=== PATIENT | female | born 1945 | race Caucasian/White ===

== ENCOUNTER → 2016-11-04 | Outpatient (CLI) | payer MEDICARE, OTHER ==
[~2016-11-04] MED LIST: ALBU17AE23 IH; AZIT500T2 PO; MED FOR HPTN; VITAMINES PO; [UNRECOGNIZED DRUG - OTHER] PO
--- NOTE | 2016-11-05 18:52 | Diagnostic Imaging Report ---
Bilateral screening mammogram. The current study was also evaluated with a Computer Aided Detection (CAD) system. INDICATION: Screening. No current complaints stated on the questionnaire. COMPARISON: 11/04/15. FINDINGS: The breasts are composed of scattered fibroglandular densities. There is no mass, architectural distortion or suspicious cluster of calcification. Allowing for technique and positional differences, no suspicious change is seen. IMPRESSION: No significant change. ACR BI-RADS Category 2: Benign findings. Result letter will be mailed to the patient. Note: At least 10% of breast cancer is not imaged by mammography. Dictated by: Dictated on workstation # [id number]
== END ==
LOC: RAD 10:03
PROVIDERS: ATTEND Nurse Practitioner Family
DX: Z12.31 Encounter for screening mammogram for malignant neoplasm of breast (principal)
CPT/HCPCS: 77067

== ENCOUNTER → 2017-08-25 | Outpatient (CLI) | payer MEDICARE, OTHER | LOC: CARD 12:02 | PROVIDERS: ATTEND Physician Assistant | DX: R06.09 Other forms of dyspnea (principal); I10 Essential (primary) hypertension; E78.2 Mixed hyperlipidemia; Z72.0 Tobacco use | CPT/HCPCS: 93306 ==

== ENCOUNTER → 2017-11-05 | Outpatient (CLI) | payer MEDICARE, OTHER ==
[2017-11-05 09:20] LABS: BASOPHILS % (AUTO) 0 % (0-10); EOSINOPHILS # (AUTO) 0.2 10^3/uL (0.0-0.3); EOSINOPHILS % (AUTO) 2 % (0-10); HEMATOCRIT 40 % (35-52); HEMOGLOBIN 13.3 G/DL (11.5-16.0); LYMPHOCYTES % (AUTO) 27 % (12-44); MEAN CORPUSCULAR HEMOGLOBIN 33 PG (25-34); MEAN CORPUSCULAR HGB CONC 33 G/DL (32-36); MEAN CORPUSCULAR VOLUME 99 FL (80-99); MEAN PLATELET VOLUME 10.1 FL (7.4-10.4); MONOCYTES # (AUTO) 0.9 X 10^3 (0.0-1.0); MONOCYTES % (AUTO) 8 % (0-12); NEUTROPHILS # (AUTO) 7.1 X 10^3 (1.8-7.8); NEUTROPHILS % (AUTO) 63 % (42-75); PLATELET COUNT 280 10^3/uL (130-400); RED BLOOD COUNT 4.07 10^6/uL (4.35-5.85); RED CELL DISTRIBUTION WIDTH 12.4 % (10.0-14.5); WHITE BLOOD COUNT 11.2 10^3/uL (4.3-11.0)
[2017-11-05 10:25] LABS: BASOPHILS % (MANUAL) 1 %; EOSINOPHILS % (MANUAL) 1 %; LYMPHOCYTES % (MANUAL) 29 %; MONOCYTES % (MANUAL) 6 %; NEUTROPHILS % (MANUAL) 63 %
[2017-11-05 10:26] LABS: RBC MORPH NORMAL
[2017-11-05 13:20] LABS: ABSOLUTE RETIC # 30 10e9/L (24-90); RETICULOCYTE % 0.73 % (0.50-2.40)
--- NOTE | 2017-11-05 13:46 | Diagnostic Imaging Report ---
INDICATION: Routine screening. COMPARISON: Comparison is made with prior studies from 11/04/2016 and 11/04/2015. The current study was also evaluated with a Computer Aided Detection (CAD) system. FINDINGS: Scattered fibroglandular densities are identified bilaterally. No dominant mass or malignant appearing microcalcifications are seen. The axillae are unremarkable. IMPRESSION: No mammographic features suspicious for malignancy are identified. ACR BI-RADS Category 1: Negative. Result letter will be mailed to the patient. Note: At least 10% of breast cancer is not imaged by mammography. Dictated by: Dictated on workstation # [id number]
== END ==
LOC: RAD 09:03
PROVIDERS: ATTEND Nurse Practitioner Family
DX: Z12.31 Encounter for screening mammogram for malignant neoplasm of breast (principal); D72.829 Elevated white blood cell count, unspecified
CPT/HCPCS: 36415; 77067; 85007; 85027; 85045

== ENCOUNTER → 2018-06-23 | Outpatient (CLI) | payer MEDICARE, OTHER ==
[~2018-06-23] MED LIST changes: +CATHETER FLUSH 10 ML SYR IV PRN; +IOHEXOL 350 MG/ML 100 ML (OMNIPAQUE 350) VIAL IV ONE; +NS 250 ML (IVPB) BAG IV ONE; +RECEIVED CONTRAST (Hold Metformin) IV SCH
--- NOTE | 2018-06-23 11:18 | Diagnostic Imaging Report ---
PROCEDURE: CT chest with contrast only. TECHNIQUE: Multiple contiguous axial images were obtained through the chest after administration of intravenous contrast. INDICATION: Tobaccoism. COMPARISON: No prior studies are available for comparison. FINDINGS: There is a 9 mm low-density nodule right lobe of the thyroid. No axillary lymphadenopathy is seen. No hilar or mediastinal lymphadenopathy is detected. No pericardial or pleural fluid is identified. Pulmonary parenchymal evaluation demonstrates central airways to be patent. Lungs appear to be fairly clear apart from some linear scarring or subsegmental atelectasis in the lingula. No parenchymal mass, nodule or infiltrate is identified. Upper abdomen is unremarkable. IMPRESSION: 1. Essentially unremarkable CT of the chest with contrast. No thoracic lymphadenopathy or evidence of pulmonary mass is seen. 2. Small subcentimeter right lobe thyroid nodule. Characterization with thyroid ultrasound could be performed, if clinically indicated. Dictated by: Dictated on workstation # [id number]
--- NOTE | 2018-06-23 19:26 | Diagnostic Imaging Report ---
INDICATION: Screening for osteoporosis. COMPARISON: 05/16/2015. FINDINGS: AP Spine L1-L4: [BMD (g/cm2): 0.943] [T-Score: -2.1] [Z-Score: 0.0] [BMD Previous: 0.901] [BMD % Change: 4.7] LT Hip Neck: [BMD (g/cm2): 0.576] [T-Score: -3.3] [Z-Score: -1.3] LT Hip Total: [BMD (g/cm2):0.532] [T-Score:-3.8] [Z-Score: -2.0] [BMD Previous: ] [BMD % Change: ] RT Hip Neck: [BMD (g/cm2):0.590] [T-Score:-3.2] [Z-Score:-1.2] RT Hip Total: [BMD (g/cm2):0.561] [T-score:-3.5] [Z-Score:-1.7] [BMD Previous: ] [BMD % Change: ] *Indicates significant change from prior examination based on 95% confidence level. World Health Organization criteria for BMD interpretation classify patients as Normal (T-score at or above -1.0), Osteopenic (T-score between -1.0 and -2.5) or Osteoporotic (T-score at or below -2.5). LIMITATIONS AND MODIFICATION: None. FRACTURE RISK (FRAX SCORE): The ten year probability of (%): Major Osteoporotic Fracture: [25] Hip Fracture: [15] IMPRESSION: 1. The bone mineral density of the spine has increased somewhat since the prior exam. The T score still indicates osteopenia. 2. The bone mineral density of the hips is unchanged when compared to the prior exam. These scores suggest severe osteoporosis. 3. See below National Osteoporosis Foundation guidelines on when to potentially initiate pharmacologic therapy. Based on the National Osteoporosis Foundation Guidelines, pharmacologic treatment should be initiated in any of the following, unless clinical conditions suggest otherwise: * Any patient with prior fragility fracture of the hip or vertebrae. A spine fracture indicates 5X risk for subsequent spine fracture and 2X risk for subsequent hip fracture. * Osteoporosis (T-score <-2.5). * Postmenopausal women and men age 50 and older with low bone mass/osteopenia (T-score between -1.0 and -2.5) by DXA and 10-year major osteoporotic fracture greater than 20% or a 10-year probability of hip fracture greater than 3%. These fracture risks are supplied above in the FRAX score, if applicable. * Clinician judgment and/or patient preferences may indicate treatment for people with 10-year fracture probabilities above or below these levels. Dictated by: Dictated on workstation # [id number]
== END ==
LOC: RAD 09:44
PROVIDERS: ATTEND Nurse Practitioner Family
DX: Z13.820 Encounter for screening for osteoporosis (principal); M85.88 Other specified disorders of bone density and structure, other site; E04.1 Nontoxic single thyroid nodule; M81.0 Age-related osteoporosis without current pathological fracture; F17.210 Nicotine dependence, cigarettes, uncomplicated
CPT/HCPCS: 71260; 77080

== ENCOUNTER → 2018-07-25 | Outpatient (CLI) | payer MEDICARE, OTHER ==
[~2018-07-25] MED LIST changes: -CATHETER FLUSH 10 ML SYR IV PRN; -IOHEXOL 350 MG/ML 100 ML (OMNIPAQUE 350) VIAL IV ONE; -NS 250 ML (IVPB) BAG IV ONE; -RECEIVED CONTRAST (Hold Metformin) IV SCH
--- NOTE | 2018-07-25 10:24 | Diagnostic Imaging Report ---
Indication: Right thyroid nodule Thyroid sonography performed in the routine fashion. The right thyroid lobe measured 4.6 x 1.7 x 1.9 cm. The left thyroid lobe measured 4.1 x 1.4 x 1.3 cm. On the right side, there is a nodule superiorly measuring 1.4 x 2.2 x 1.2 cm with fairly ill-defined appearance. On the left side, there are small ill-defined nodules present measuring below a centimeter in size. There is no previous study for comparison. Impression: Inhomogenous appearing thyroid gland with small bilateral nodules. There is a ill-defined nodule in the right thyroid lobe measuring 1.4 x 2.2 x 1.2 cm. This could be followed sonographically as clinically warranted. This lesion could be biopsied if clinically desired. Dictated by: Dictated on workstation # [id number]
== END ==
LOC: RAD 08:48
PROVIDERS: ATTEND Family Medicine
DX: E04.2 Nontoxic multinodular goiter (principal)
CPT/HCPCS: 76536

== ENCOUNTER → 2018-08-03 | Outpatient (CLI) | payer MEDICARE, OTHER ==
[~2018-08-03] VITALS: Ht 165.1 cm; Wt 52.7 kg
[~2018-08-03] MED LIST changes: +DENOSUMAB 60 MG/1 ML (PROLIA) SQ NR
[2018-08-03 13:35] VITALS: BP 120/62
== END ==
LOC: SDC 12:35
PROVIDERS: ATTEND Nurse Practitioner Family
DX: M81.0 Age-related osteoporosis without current pathological fracture (principal)
CPT/HCPCS: 96372

== ENCOUNTER → 2018-08-04 | Outpatient (CLI) | payer MEDICARE, OTHER ==
[~2018-08-04] VITALS: Ht 162.6 cm; Wt 52.7 kg
[~2018-08-04] MED LIST changes: -DENOSUMAB 60 MG/1 ML (PROLIA) SQ NR; +LIDOCAINE 1% INJ 20 ML 20 ML VIAL INJ ONE
--- NOTE | 2018-08-04 21:21 | Diagnostic Imaging Report ---
INDICATION: Right thyroid nodule. Patient presents for right thyroid biopsy. TECHNIQUE: Patient was brought to the procedure room, placed on the table in the supine position. Ultrasound imaging over the right neck was performed to evaluate appropriate entry site. The right neck was then prepped and draped in the usual sterile fashion. Small amount of 1% lidocaine was utilized for local anesthesia. Total of 4 passes were made into the solid nodule in the right lobe of the thyroid with 25-gauge needles. Fine needle aspiration technique was utilized. Two passes were made into the right lobe nodule with a 20-gauge Temno needle and core sampling was performed. Hemostasis was obtained using manual compression. Patient tolerated the procedure well and left the department in stable condition. IMPRESSION: Successful ultrasound-guided fine needle aspiration and core biopsy of the solid nodule in the right lobe, as described. Pathology results are currently pending. Dictated by: Dictated on workstation # [id number]
== END ==
LOC: RAD 10:46
PROVIDERS: ATTEND Surgery
DX: E04.1 Nontoxic single thyroid nodule (principal)
CPT/HCPCS: 76942; 88173; 88305

== ENCOUNTER → 2018-12-05 | Outpatient (CLI) | payer MEDICARE, OTHER ==
[~2018-12-05] MED LIST changes: -LIDOCAINE 1% INJ 20 ML 20 ML VIAL INJ ONE
[2018-12-05 10:25] LABS: ABSOLUTE RETIC # 41 10e9/L (24-90); BASOPHILS % (AUTO) 0 % (0-10); EOSINOPHILS # (AUTO) 0.2 10^3/uL (0.0-0.3); EOSINOPHILS % (AUTO) 3 % (0-10); HEMATOCRIT 40 % (35-52); HEMOGLOBIN 13.2 G/DL (11.5-16.0); LYMPHOCYTES # (AUTO) 2.3 X 10^3 (1.0-4.0); LYMPHOCYTES % (AUTO) 25 % (12-44); MEAN CORPUSCULAR HEMOGLOBIN 32 PG (25-34); MEAN CORPUSCULAR HGB CONC 33 G/DL (32-36); MEAN CORPUSCULAR VOLUME 97 FL (80-99); MEAN PLATELET VOLUME 10.1 FL (7.4-10.4); MONOCYTES # (AUTO) 0.7 X 10^3 (0.0-1.0); MONOCYTES % (AUTO) 8 % (0-12); NEUTROPHILS # (AUTO) 5.6 X 10^3 (1.8-7.8); NEUTROPHILS % (AUTO) 64 % (42-75); PLATELET COUNT 243 10^3/uL (130-400); RED CELL DISTRIBUTION WIDTH 12.7 % (10.0-14.5); RETICULOCYTE % 0.99 % (0.50-2.40); WHITE BLOOD COUNT 8.9 10^3/uL (4.3-11.0)
[2018-12-05 10:42] LABS: ALANINE AMINOTRANSFERASE 26 U/L (0-55); ALBUMIN 4.2 GM/DL (3.2-4.5); ALKALINE PHOSPHATASE 65 U/L (40-136); BILIRUBIN,TOTAL 0.5 MG/DL (0.1-1.0); BUN/CREATININE RATIO 20; CARBON DIOXIDE 24 MMOL/L (21-32); CHLORIDE 105 MMOL/L (98-107); CHOLESTEROL 216 MG/DL (< 200); CREATININE SERUM 0.83 MG/DL (0.60-1.30); GFR ESTIMATED > 60; GLUCOSE 87 MG/DL (70-105); HDL CHOLESTEROL 57 MG/DL (40-60); POTASSIUM 3.9 MMOL/L (3.6-5.0); SODIUM 140 MMOL/L (135-145); TOTAL PROTEIN 7.5 GM/DL (6.4-8.2); TRIGLYCERIDES 124 MG/DL (<150); VLDL CHOLESTEROL 25 MG/DL (5-40)
[2018-12-05 10:53] LABS: BAND NEUTROPHILS 0 %; BASOPHILS % (MANUAL) 0 %; EOSINOPHILS % (MANUAL) 1 %; LYMPHOCYTES % (MANUAL) 24 %; MONOCYTES % (MANUAL) 4 %; NEUTROPHILS % (MANUAL) 71 %; RBC MORPH NORMAL
== END ==
LOC: LAB 09:53
PROVIDERS: ATTEND Family Medicine
DX: I10 Essential (primary) hypertension (principal); M81.0 Age-related osteoporosis without current pathological fracture; D72.829 Elevated white blood cell count, unspecified
CPT/HCPCS: 36415; 80053; 80061; 82306; 84443; 85007; 85027; 85045

== ENCOUNTER → 2019-02-01 | Outpatient (CLI) | payer MEDICARE, OTHER ==
[~2019-02-01] VITALS: Ht 162.6 cm; Wt 52.7 kg
[~2019-02-01] MED LIST changes: +DENOSUMAB 60 MG/1 ML (PROLIA) SQ ONE
[2019-02-01 12:55] VITALS: BP 118/57
== END ==
LOC: SDC 12:36
PROVIDERS: ATTEND Nurse Practitioner Family
DX: M81.0 Age-related osteoporosis without current pathological fracture (principal)
CPT/HCPCS: 96372

== ENCOUNTER 2019-08-10 12:49 | Outpatient (CLI) | payer MEDICARE, OTHER ==
[~2019-08-10] VITALS: Ht 162 cm; Wt 52.7 kg
[~2019-08-10 12:49] MED LIST changes: -DENOSUMAB 60 MG/1 ML (PROLIA) SQ ONE
[2019-08-10] MEDS ORDERED: DENOSUMAB 60 MG/1 ML (PROLIA) SQ ONE (13:00)
[2019-08-10 13:04] VITALS: BP 115/53
== END 2019-08-10 13:04 | disposition home or self-care (01) ==
LOC: SDC 12:49
PROVIDERS: ATTEND Nurse Practitioner Family
DX: M81.0 Age-related osteoporosis without current pathological fracture (principal)
CPT/HCPCS: 96372

== ENCOUNTER → 2019-12-06 | Outpatient (CLI) | payer MEDICARE, OTHER ==
--- NOTE | 2019-12-06 14:12 | Diagnostic Imaging Report ---
CLINICAL INDICATION: Follow-up thyroid nodules. COMPARISONS: Ultrasound of the thyroid gland dated 07/25/2018. FINDINGS: THYROID NODULES: There is a 1.9 cm x 0.9 cm x 1.5 cm heterogeneous solid nodule in the mid to upper right thyroid gland lobe. There is Doppler flow within this nodule. It is reported that this nodule was previously biopsied. This nodule previously measured 1.4 cm x 2.2 cm x 1.2 cm. There is central Doppler flow within this nodule. There are multiple smaller nodules involving the left thyroid gland. Largest left thyroid gland nodule is heterogeneous with central Doppler flow and measures 7 mm x 7 mm x 4 mm. This area was partially seen on the prior study, but was not measured on the prior study. Remainder of the left thyroid gland shows no other significant interval change. THYROID GLAND: Besides the thyroid nodules, the thyroid gland has normal size, shape and echogenicity. The right lobe measures 4.9 cm x 1.8 cm x 1.9 cm and the left lobe measures 4.4 cm x 1.3 cm x 1.1 cm in their three dimensions. ISTHMUS: The isthmus is unremarkable and measures 2 mm in thickness. IMPRESSION: 1: Multiple bilateral thyroid gland nodules are again seen with the largest in the right thyroid gland. Largest measures 1.9 cm in greatest dimension in the mid to upper right thyroid gland and has decreased in size compared to the prior study. 2: The largest nodule in the left thyroid gland is heterogeneous and measures 7 mm in greatest dimension, but was not measured or well visualized on the prior study. This may represent a developing nodule or this nodule was less defined on the prior study. Continued follow-up imaging would better evaluate. Dictated by: Dictated on workstation # [id number]
== END ==
LOC: RAD 11:04
PROVIDERS: ATTEND Nurse Practitioner Family
DX: E04.1 Nontoxic single thyroid nodule (principal)
CPT/HCPCS: 76536

== ENCOUNTER 2020-02-08 12:36 | Outpatient (CLI) | payer MEDICARE, OTHER ==
[~2020-02-08] VITALS: Ht 160 cm; Wt 52.7 kg
[2020-02-08] MEDS ORDERED: DENOSUMAB 60 MG/1 ML (PROLIA) SQ SCH (13:15)
[2020-02-08 13:24] VITALS: BP 134/58
== END 2020-02-08 13:24 | disposition home or self-care (01) ==
LOC: SDC 12:36
PROVIDERS: ATTEND Nurse Practitioner Family
DX: M81.0 Age-related osteoporosis without current pathological fracture (principal)
CPT/HCPCS: 96372

== ENCOUNTER → 2020-06-17 | Outpatient (CLI) | payer MEDICARE, OTHER ==
--- NOTE | 2020-06-17 13:04 | Diagnostic Imaging Report ---
CLINICAL INDICATION: Patient with thyroid nodules. COMPARISONS: Ultrasound of the thyroid gland dated 12/06/2019. FINDINGS: THYROID NODULES: There are multiple bilateral thyroid lobe nodules seen. The largest is in the right mid thyroid lobe region measuring 2.2 cm x 1.5 cm x 1.3 cm and demonstrates central Doppler flow. This nodule is slightly heterogeneous and predominantly isoechoic with some areas of hypoechogenicity. This nodule previously measured 1.9 cm x 0.9 cm x 1.5 cm. Multiple predominantly hypoechoic nodules involving the left thyroid lobe are seen. There is a heterogeneous hypoechoic 7 mm nodule measured in the long dimension which appears to have areas of hyperechogenicity within it with central Doppler flow. This nodule previously measured 7 mm x 4 mm x 6 mm. The next largest nodule measures 3 mm x 4 mm x 5 mm and is heterogeneous and predominantly hypoechoic. THYROID GLAND: Besides the thyroid nodules, the thyroid gland has normal size, shape, and echogenicity. The right lobe measures 4.5 cm x 1.7 cm x 1.9 cm and the left lobe measures 4.4 cm x 1.1 cm x 1.2 cm in their three dimensions. ISTHMUS: The isthmus is unremarkable and measures 3 mm in thickness. IMPRESSION: 1. There is slight increased size of the 2.2 cm heterogeneous nodule involving the right thyroid lobe. 2. Stable heterogeneous hypoechoic 7 mm nodule involving the inferior lateral aspect of the left thyroid lobe. There are questionable microcalcifications seen within it. This nodule should be closely followed. If this nodule reaches 1 cm, FNA should be performed if it has not already been performed. Dictated by: Dictated on workstation # [id number]
== END ==
LOC: RAD 10:15
PROVIDERS: ATTEND Otolaryngology Otolaryngology/Facial Plastic Surgery
DX: E04.2 Nontoxic multinodular goiter (principal)
CPT/HCPCS: 76536

== ENCOUNTER → 2020-06-25 | Outpatient (CLI) | payer MEDICARE, OTHER ==
--- NOTE | 2020-06-25 12:56 | Diagnostic Imaging Report ---
INDICATION: Routine screening. COMPARISON: 11/05/2017 and 11/04/2016. TECHNIQUE: 2D and 3D bilateral screening mammography was performed with CAD. FINDINGS: Both breasts remain heterogeneously dense, limiting the sensitivity of mammography. The parenchymal pattern is stable. No mass or malignant appearing microcalcifications are seen. The axillae are unremarkable. IMPRESSION: No mammographic features suspicious for malignancy are identified. ACR BI-RADS Category 1: Negative. Result letter will be mailed to the patient. Note: At least 10% of breast cancer is not imaged by mammography. Dictated by: Dictated on workstation # [id number]
--- NOTE | 2020-06-25 13:08 | Diagnostic Imaging Report ---
INDICATION: Postmenopausal. COMPARISON: 06/23/2018. FINDINGS: The T-score for the spine is -2.7. On the prior exam, the T-score was -2.1. The total T-score for the left hip is -3.9 and for the right hip -3.5. Previously, the respective T-scores were -3.8 and -3.5. The T-score for the left femoral neck is -3.3 and for the right femoral neck -2.9. On the prior exam, the T-scores were -3.3 and -3.2 respectively. AP Spine L1-L4: [BMD (g/cm2): 0.876] [T-Score: -2.7] [Z-Score: -0.5] [BMD Previous: 0.943] [BMD % Change: -7.1] LT Hip Neck: [BMD (g/cm2): 0.584] [T-Score: -3.3] [Z-Score: -1.2] LT Hip Total: [BMD (g/cm2):0.513] [T-Score:-3.9] [Z-Score: -2.0] [BMD Previous: 0.532] [BMD % Change: -3.6] RT Hip Neck: [BMD (g/cm2):0.638] [T-Score:-2.9] [Z-Score:-0.8] RT Hip Total: [BMD (g/cm2):0.568] [T-score:-3.5] [Z-Score:-1.6] [BMD Previous:0.561] [BMD % Change:1.2] *Indicates significant change from prior examination based on 95% confidence level. World Health Organization criteria for BMD interpretation classify patients as Normal (T-score at or above -1.0), Osteopenic (T-score between -1.0 and -2.5) or Osteoporotic (T-score at or below -2.5). LIMITATIONS AND MODIFICATION: None. FRACTURE RISK (FRAX SCORE): The ten year probability of (%): Major Osteoporotic Fracture: [20.1] Hip Fracture: [8.5] IMPRESSION: 1. The bone mineral density of the spine has decreased since the prior exam. The T-score now indicates osteoporosis. 2. The bone mineral density of the hips and femoral necks has not changed significantly since the prior study. All these T-score values still fall within the range of osteoporosis. 3. See below National Osteoporosis Foundation guidelines on when to potentially initiate pharmacologic therapy. Based on the National Osteoporosis Foundation Guidelines, pharmacologic treatment should be initiated in any of the following, unless clinical conditions suggest otherwise: * Any patient with prior fragility fracture of the hip or vertebrae. A spine fracture indicates 5X risk for subsequent spine fracture and 2X risk for subsequent hip fracture. * Osteoporosis (T-score <-2.5). * Postmenopausal women and men age 50 and older with low bone mass/osteopenia (T-score between -1.0 and -2.5) by DXA and 10-year major osteoporotic fracture greater than 20% or a 10-year probability of hip fracture greater than 3%. These fracture risks are supplied above in the FRAX score, if applicable. * Clinician judgement and/or patient preferences may indicate treatment for people with 10-year fracture probabilities above or below these levels. Dictated by: Dictated on workstation # [id number]
== END ==
LOC: RAD 09:45
PROVIDERS: ATTEND Family Medicine
DX: Z12.31 Encounter for screening mammogram for malignant neoplasm of breast (principal); M81.0 Age-related osteoporosis without current pathological fracture
CPT/HCPCS: 77063; 77067; 77080

== ENCOUNTER → 2020-07-25 | Outpatient (CLI) | payer MEDICARE, OTHER ==
[~2020-07-25] MED LIST changes: +GADOBUTROL 15 MMOL/15 ML (GADAVIST) VIAL IV ONE
--- NOTE | 2020-07-25 12:30 | Diagnostic Imaging Report ---
PROCEDURE: MR brain and sella with and without contrast. TECHNIQUE: Multiplanar, multisequence MR imaging of the brain was performed with and without contrast. Dedicated dynamic imaging of the sella was performed. INDICATION: Elevated labs. COMPARISON: None FINDINGS: No diffusion restriction is identified. The normal expected flow-voids within the carotid siphons are seen. No acute intra-axial or extra-axial hemorrhage is detected. Corpus callosum is unremarkable. The pituitary gland is unremarkable. Infundibulum is midline. No sellar or suprasellar mass is detected. Dynamic sequences through the sella turcica following contrast administration demonstrate fairly homogeneous signal intensity throughout the pituitary gland. No definite low signal intensity lesions are seen to suggest pituitary adenoma. IMPRESSION: Essentially unremarkable MRI of the brain with and without contrast with special attention to the pituitary gland. No pituitary mass is detected. Dictated by: Dictated on workstation # [id number]
== END ==
LOC: RAD 10:32
PROVIDERS: ATTEND Otolaryngology Otolaryngology/Facial Plastic Surgery
DX: E05.90 Thyrotoxicosis, unspecified without thyrotoxic crisis or storm (principal)
CPT/HCPCS: 70553

== ENCOUNTER 2020-08-12 13:48 | Outpatient (CLI) | payer MEDICARE, OTHER ==
[~2020-08-12] VITALS: Wt 52.7 kg
[~2020-08-12 13:48] MED LIST changes: -GADOBUTROL 15 MMOL/15 ML (GADAVIST) VIAL IV ONE
[2020-08-12 13:55] VITALS: BP 134/57
[2020-08-12] MEDS ORDERED: DENOSUMAB 60 MG/1 ML (PROLIA) SQ NR (13:56)
== END 2020-08-12 14:15 | disposition home or self-care (01) ==
LOC: SDC 13:48
PROVIDERS: ATTEND Nurse Practitioner Family
DX: M81.0 Age-related osteoporosis without current pathological fracture (principal)
CPT/HCPCS: 96372

== ENCOUNTER → 2021-02-10 | Outpatient (CLI) | payer MEDICARE, OTHER ==
[~2021-02-10] MED LIST changes: +DENOSUMAB 60 MG/1 ML (PROLIA) SQ ONE
[2021-02-10 12:40] VITALS: BP 122/54
== END ==
LOC: SDC 12:17
PROVIDERS: ATTEND Nurse Practitioner Family
DX: M81.0 Age-related osteoporosis without current pathological fracture (principal)
CPT/HCPCS: 96372

== ENCOUNTER → 2021-03-06 | Outpatient (CLI) | payer MEDICARE, OTHER ==
[~2021-03-06] MED LIST changes: -DENOSUMAB 60 MG/1 ML (PROLIA) SQ ONE
--- NOTE | 2021-03-06 19:01 | Diagnostic Imaging Report ---
PROCEDURE: US thyroid. TECHNIQUE: Multiple real-time grayscale images were obtained of the thyroid in various projections. INDICATION: Thyroid nodules. FINDINGS: Right lobe of the thyroid measures 4.8 x 2.0 x 2.4 cm. There is a dominant nodule in the right lobe, 2.1 x 1.6 cm. Left lobe of the thyroid measures 4.7 x 1.2 x 1.1 cm. There are two subcentimeter nodules measuring 0.8 and 0.7 cm, respectively. IMPRESSION: 2.1 cm isoechoic nodule in the right lobe of thyroid. There are some questionable microcalcifications within it. Further evaluation with ultrasound-guided fine-needle aspiration is recommended to exclude malignancy. Dictated by: Dictated on workstation # [id number]
== END ==
LOC: RAD 12:45
PROVIDERS: ATTEND Internal Medicine Endocrinology, Diabetes & Metabolism
DX: E04.2 Nontoxic multinodular goiter (principal)
CPT/HCPCS: 76536

== ENCOUNTER → 2021-06-26 | Outpatient (CLI) | payer MEDICARE, OTHER ==
--- NOTE | 2021-06-26 11:49 | Diagnostic Imaging Report ---
Indication: Routine screening. Comparison is made with prior mammogram 06/25/2020 and 11/05/2017. 2-D and 3-D bilateral screening mammography was performed with CAD. Both breasts remain heterogeneously dense, limiting the sensitivity of mammography. Density in the outer right breast posterior depth appears slightly more prominent on today's study and additional views are recommended. No definite corresponding density on the MLO view is seen. Left breast is unremarkable. No malignant-appearing microcalcifications are seen. Axillae are unremarkable. IMPRESSION: BI-RADS 0 Right breast density. Additional views are recommended for further evaluation. ACR BI-RADS Category 0: Incomplete. (Needs additional imaging evaluation). Result letter will be mailed to the patient. Note: At least 10% of breast cancer is not imaged by mammography. Dictated by: Dictated on workstation # [id number]
--- NOTE | 2021-06-26 13:12 | Diagnostic Imaging Report ---
INDICATION: Smoker, weight loss. TECHNIQUE: Multiple contiguous axial images were obtained through the chest without the use of intravenous contrast. Auto Exposure Controls were utilized during the CT exam to meet ALARA standards for radiation dose reduction. CT chest obtained without IV contrast and compared to the prior study of 06/23/2018. FINDINGS: There are no enlarged mediastinal or hilar nodes. There are some atherosclerotic calcifications of the aorta without evidence of aneurysm. There are no enlarged axillary nodes or chest wall lesions. There is no pleural or pericardial fluid. Visualized portions of the upper abdomen demonstrate absence of the left kidney with normal-appearing right kidney. Lung parenchymal windows demonstrate hyperinflation. There are mild emphysematous changes. There is no pulmonary parenchymal consolidation or discrete nodule. IMPRESSION: There is some hyperinflation present with mild emphysematous change. There is no consolidation or pulmonary parenchymal nodule or mass. There is no significant adenopathy in the mediastinum or panfilo. Overall findings are stable compared to the prior study. Dictated by: Dictated on workstation # [id number]
== END ==
LOC: RAD 10:45
PROVIDERS: ATTEND Family Medicine
DX: Z12.31 Encounter for screening mammogram for malignant neoplasm of breast (principal); J43.9 Emphysema, unspecified
CPT/HCPCS: 71250; 77063; 77067

== ENCOUNTER → 2021-07-14 | Outpatient (CLI) | payer MEDICARE, OTHER ==
--- NOTE | 2021-07-14 13:33 | Diagnostic Imaging Report ---
INDICATION: Right breast density. Patient presents for additional views. Comparison is made with screening study from 06/26/2021. Unilateral right 2-D and 3-D diagnostic mammography was performed. This included spot compression CC, rolled CC as well as conventional 90 degrees lateral views. Additional views fail to demonstrate a discrete mass. The density noted in the lateral right breast on the CC view resolves with additional views and most likely represented superimposed tissue. IMPRESSION: Additional views fail to demonstrate a discrete mass. The patient may return to routine annual screening mammography. BI-RADS Category 1 ACR BI-RADS Category 1: Negative. Result letter will be mailed to the patient. Note: At least 10% of breast cancer is not imaged by mammography. Dictated by: Dictated on workstation # [id number]
== END ==
LOC: RAD 12:45
PROVIDERS: ATTEND Nurse Practitioner Family
DX: R92.2 Inconclusive mammogram (principal)
CPT/HCPCS: 77065; G0279

== ENCOUNTER 2021-08-15 12:48 | Outpatient (RCR) | payer MEDICARE, OTHER | END 2021-08-18 | disposition home or self-care (01) | LOC: SDC 12:48 → PREOP 12:48 → EDSTATUS 13:03 → PREOP 08-18 15:00 | PROVIDERS: ATTEND Nurse Practitioner Family | DX: Z01.818 Encounter for other preprocedural examination (principal) ==

== ENCOUNTER → 2021-12-22 | Outpatient (CLI) | payer MEDICARE, OTHER ==
[~2021-12-22] MED LIST changes: +CATHETER FLUSH 10 ML SYR IV PRN; +HOLD METFORMIN - RECEIVED CONTRAST 20 ML VIAL IV SCH; +IOHEXOL 350 MG/ML 100 ML (OMNIPAQUE 350) VIAL IV ONE; +NS 100 ML (IVPB) BAG IV ONE
[2021-12-22 11:17] LABS: CREATININE SERUM 0.88 MG/DL (0.60-1.30)
--- NOTE | 2021-12-22 15:13 | Diagnostic Imaging Report ---
INDICATION: Occlusion and stenosis of carotid artery. CTA neck obtained with IV contrast bolus and axial slices and 3-D reconstructions. The aortic arch is patent with atherosclerotic plaquing of moderate severity. The great vessel origins are patent but there is eccentric plaquing of the left subclavian artery and its midportion with about 50% diameter stenosis. On the right side, the common carotid artery is patent. There is eccentric plaquing at the right carotid bifurcation with stenosis of about 80% in the distal common carotid just below the bifurcation. The internal carotid is patent otherwise throughout its course. On the left side, the common carotid artery is patent. There is eccentric plaquing in the left carotid bifurcation, with about 70% diameter stenosis of the internal carotid just above the bifurcation. The left external carotid is patent. The distal portions of the left internal carotid artery are patent. Both vertebrals are patent and appear codominant. Visualized intracranial vessels appear patent. Note is made of the homogeneity of the thyroid gland with right thyroid nodule measuring about 1.4 cm in greatest diameter. The thyroid findings can be followed sonographically. IMPRESSION: There is significant plaquing in the carotid bifurcations on both sides. There is about 80% stenosis of the right distal common carotid artery just below the bifurcation. There is about 70% stenosis of the left internal carotid just above the bifurcation. Both vertebrals are patent. There is about 50% diameter stenosis of the mid descending portion of the left subclavian artery. Incidental note is made of a right thyroid nodule, this finding can be followed sonographically. Dictated by: Dictated on workstation # [id number]
== END ==
LOC: RAD 11:45
PROVIDERS: ATTEND Physician Assistant
DX: I65.23 Occlusion and stenosis of bilateral carotid arteries (principal)
CPT/HCPCS: 36415; 70498; 82565; 84520

== ENCOUNTER 2022-03-04 11:30 | Outpatient (CLI) | payer MEDICARE, OTHER ==
[~2022-03-04 11:30] MED LIST changes: -CATHETER FLUSH 10 ML SYR IV PRN; -HOLD METFORMIN - RECEIVED CONTRAST 20 ML VIAL IV SCH; -IOHEXOL 350 MG/ML 100 ML (OMNIPAQUE 350) VIAL IV ONE; -NS 100 ML (IVPB) BAG IV ONE
[2022-03-04 11:40] VITALS: BP 130/66
[2022-03-04] MEDS ORDERED: DENOSUMAB 60 MG/1 ML (PROLIA) SQ ONE (11:45)
== END 2022-03-04 12:05 | disposition home or self-care (01) ==
LOC: SDC 11:30
PROVIDERS: ATTEND Nurse Practitioner Family
DX: M81.0 Age-related osteoporosis without current pathological fracture (principal)
CPT/HCPCS: 96372

== ENCOUNTER → 2022-09-08 | Outpatient (CLI) | payer MEDICARE, OTHER ==
[~2022-09-08] MED LIST changes: +DENOSUMAB 60 MG/1 ML (PROLIA) SQ SCH
[2022-09-08 11:15] VITALS: BP 118/85
== END ==
LOC: SDC 11:00
PROVIDERS: ATTEND Nurse Practitioner Family
DX: M81.0 Age-related osteoporosis without current pathological fracture (principal)
CPT/HCPCS: 96372

== ENCOUNTER → 2022-09-28 | Outpatient (CLI) | payer MEDICARE, OTHER ==
[~2022-09-28] MED LIST changes: -DENOSUMAB 60 MG/1 ML (PROLIA) SQ SCH
--- NOTE | 2022-09-28 11:21 | Diagnostic Imaging Report ---
EXAMINATION: CT chest without contrast (lung screening). TECHNIQUE: Multiple contiguous axial images were obtained through the chest without the use of intravenous contrast according to lung cancer screening protocol. All CT scans use one or more of the following dose optimizing techniques: automated exposure control, MA and/or KvP adjustment based on patient size and exam type or iterative reconstruction. HISTORY: 40 pack year history of smoking. COMPARISON: 06/26/2021 FINDINGS: Thyroid: There are thyroid nodules measuring up to 1.1 cm. Mediastinum: Heart size is normal without significant pericardial effusion. Calcifications of the aorta and coronary vessels. Thoracic aorta is normal in caliber. No suspicious lymphadenopathy. Lungs and airways: The lungs are clear without consolidation, pleural effusion, or pneumothorax. There are a few scattered subcentimeter pulmonary nodules, a few of which may be slightly calcified. Blender lesion in the left upper lobe measures 0.2 cm (series 2 image 29). There is no new suspicious pulmonary lesion. The airways are normal. Upper abdomen: The subphrenic structures are normal. Musculoskeletal: Degenerative changes of the spine without suspicious osseous lesion or compression fracture. IMPRESSION: 1. No suspicious pulmonary nodules. Recommend continued annual low-dose CT screening. LUNG-RADS CATEGORY: 2 MODIFIER: None Dictated by: Dictated on workstation # [id number]
== END ==
LOC: RAD 09:22
PROVIDERS: ATTEND Family Medicine
DX: Z12.2 Encounter for screening for malignant neoplasm of respiratory organs (principal); Z87.891 Personal history of nicotine dependence
CPT/HCPCS: 71271

== ENCOUNTER → 2022-09-29 | Outpatient (CLI) | payer MEDICARE, OTHER ==
--- NOTE | 2022-09-29 17:09 | Diagnostic Imaging Report ---
INDICATION: Postmenopausal female COMPARISON: 06/25/2020 FINDINGS: AP Spine L1-L4: [BMD (g/cm2): 0.886] [T-Score: -2.6] [Z-Score: -0.3] [BMD Previous: 0.876] [BMD % Change: 1.1] LT Hip Neck: [BMD (g/cm2): 0.587] [T-Score: -3.2] [Z-Score: -0.9] LT Hip Total: [BMD (g/cm2):0.556] [T-Score:-3.6] [Z-Score: -1.4] [BMD Previous: 0.513] [BMD % Change: 8.4*] RT Hip Neck: [BMD (g/cm2):0.602] [T-Score:-3.1] [Z-Score:-0.8] RT Hip Total: [BMD (g/cm2):0.585] [T-score:-3.4] [Z-Score:-1.2] [BMD Previous:0.568] [BMD % Change:3.0] *Indicates significant change from prior examination based on 95% confidence level. World Health Organization criteria for BMD interpretation classify patients as Normal (T-score at or above -1.0), Osteopenic (T-score between -1.0 and -2.5) or Osteoporotic (T-score at or below -2.5). LIMITATIONS AND MODIFICATION: None. FRACTURE RISK (FRAX SCORE): The ten year probability of (%): Major Osteoporotic Fracture: [NA] Hip Fracture: [NA] IMPRESSION: 1. Osteoporosis. 2. There has been a statistically significant increase in BMD since prior exam, detailed above. 3. See below National Osteoporosis Foundation guidelines on when to potentially initiate pharmacologic therapy. Based on the National Osteoporosis Foundation Guidelines, pharmacologic treatment should be initiated in any of the following, unless clinical conditions suggest otherwise: * Any patient with prior fragility fracture of the hip or vertebrae. A spine fracture indicates 5X risk for subsequent spine fracture and 2X risk for subsequent hip fracture. * Osteoporosis (T-score <-2.5). * Postmenopausal women and men age 50 and older with low bone mass/osteopenia (T-score between -1.0 and -2.5) by DXA and 10-year major osteoporotic fracture greater than 20% or a 10-year probability of hip fracture greater than 3%. These fracture risks are supplied above in the FRAX score, if applicable. * Clinician judgement and/or patient preferences may indicate treatment for people with 10-year fracture probabilities above or below these levels. Dictated by: Dictated on workstation # [id number]
== END ==
LOC: RAD 12:30
PROVIDERS: ATTEND Family Medicine
DX: M81.0 Age-related osteoporosis without current pathological fracture (principal)
CPT/HCPCS: 77080

== ENCOUNTER → 2022-10-22 | Outpatient (CLI) | payer MEDICARE, OTHER ==
[2022-10-22 12:05] LABS: ABSOLUTE RETIC # 69 10e9/uL (24-90); BASOPHILS % (AUTO) 0 % (0-10); EOSINOPHILS # (AUTO) 0.3 10^3/uL (0.0-0.3); EOSINOPHILS % (AUTO) 2 % (0-10); HEMATOCRIT 39 % (35-52); HEMOGLOBIN 13.1 g/dL (11.5-16.0); LYMPHOCYTES # (AUTO) 3.2 10^3/uL (1.0-4.0); LYMPHOCYTES % (AUTO) 26 % (12-44); MEAN CORPUSCULAR HEMOGLOBIN 33 pg (25-34); MEAN CORPUSCULAR HGB CONC 33 g/dL (32-36); MEAN CORPUSCULAR VOLUME 99 fL (80-99); MEAN PLATELET VOLUME 10.6 fL (9.0-12.2); MONOCYTES # (AUTO) 0.9 10^3/uL (0.0-1.0); MONOCYTES % (AUTO) 8 % (0-12); NEUTROPHILS # (AUTO) 7.7 10^3/uL (1.8-7.8); NEUTROPHILS % (AUTO) 64 % (42-75); PLATELET COUNT 260 10^3/uL (130-400); RETICULOCYTE % 1.74 % (0.50-2.40); WHITE BLOOD COUNT 12.2 10^3/uL (4.3-11.0)
[2022-10-22 13:12] LABS: BAND NEUTROPHILS 1 %; BASOPHILS % (MANUAL) 0 %; EOSINOPHILS % (MANUAL) 4 %; LYMPHOCYTES % (MANUAL) 30 %; MONOCYTES % (MANUAL) 7 %; NEUTROPHILS % (MANUAL) 58 %; RBC MORPH NORMAL
== END ==
LOC: LAB 11:54
PROVIDERS: ATTEND Nurse Practitioner Family
DX: D72.829 Elevated white blood cell count, unspecified (principal)
CPT/HCPCS: 36415; 85007; 85027; 85045; 85055

== ENCOUNTER → 2022-12-31 | Outpatient (CLI) | payer MEDICARE, OTHER | LOC: CARD 09:31 | PROVIDERS: ATTEND Internal Medicine Cardiovascular Disease | DX: I10 Essential (primary) hypertension (principal) | CPT/HCPCS: 93306 ==

== ENCOUNTER → 2023-03-03 | Outpatient (CLI) | payer MEDICARE, OTHER ==
[~2023-03-03] MED LIST changes: +CATHETER FLUSH 10 ML SYR IVP PRN
[2023-03-03 09:18] VITALS: BP 133/65
--- NOTE | 2023-03-03 15:35 | Cardiology Stress Test Report ---
Stress Test Report Date of Procedure/Referring: Date of Procedure: Mar 03, 2023 PCP Jackie Yang MD Admitting Physician Admitting Physician: Attending Physician: Dennis Corey MD Baseline Heart Rate: 95 Baseline Blood Pressure: Blood Pressure Systolic: 133 Blood Pressure Diastolic: 65 Vital Signs Date Time Temp Pulse Resp B/P (MAP) Pulse Ox O2 Delivery O2 Flow Rate FiO2 03/03/23 09:18 91 133/65 (87) Baseline Vital Signs Vital Signs Date Time Temp Pulse Resp B/P (MAP) Pulse Ox O2 Delivery O2 Flow Rate FiO2 03/03/23 09:18 91 133/65 (87) Baseline EKG: Baseline EKG: NSR Summary: After explaining the procedure and details to the patient, she signed the consent and was brought to the stress nuclear laboratory. Patient exercised on standard Patel protocol, EKG, heart rate and blood pressure were monitored continuously, resting and stress doses of radio tracer were injected, imaging was acquired and reviewed in the short axis, horizontal long axis and vertical long axis views Patient was able to exercise for a total of 5 minutes on Patel protocol, METs 6 Maximum heart rate 133 Maximum blood pressure 187/57 Stress EKG, Minimal nondiagnostic changes Recovery EKG, Return to baseline TID: 1.17 SSS: 5 SDS: 3 EF: 59 Conclusion: Good exercise tolerance for 5 minutes on standard Patel protocol, 6 METS achieving 91% of maximal expected heart rate Appropriate heart rate and blood pressure response to exercise return to baseline during recovery Minimal nondiagnostic EKG changes with exercise return to baseline during recovery Mild decrease uptake at the mid inferior wall with subtle reversibility, overall there is no significant ischemia or infarction on SPECT images Normal left ventricular size, ejection fraction 59% Copy Copies To 1: JACKIE YANG MD, BASHAR J MD Mar 03, 2023 15:35
== END ==
LOC: CARD 07:56
PROVIDERS: ATTEND Internal Medicine Cardiovascular Disease
DX: I10 Essential (primary) hypertension (principal)
CPT/HCPCS: 78452; 93017; A9502

== ENCOUNTER 2023-03-10 11:33 | Outpatient (CLI) | payer MEDICARE, OTHER ==
[~2023-03-10 11:33] MED LIST changes: -CATHETER FLUSH 10 ML SYR IVP PRN
[2023-03-10] MEDS ORDERED: DENOSUMAB 60 MG/1 ML (PROLIA) SQ ONE (12:00)
[2023-03-10 12:18] VITALS: BP 114/61
== END 2023-03-10 12:45 | disposition home or self-care (01) ==
LOC: SDC 11:33
PROVIDERS: ATTEND Family Medicine
DX: M81.0 Age-related osteoporosis without current pathological fracture (principal)
CPT/HCPCS: 96372